=== PATIENT | male | born 1955 | race Caucasian/White ===

== ENCOUNTER 2017-04-24 05:46 | Day surgery (SDC) | payer OTHER ==
[~2017-04-24] VITALS: Ht 185.4 cm; Wt 97.5 kg
[~2017-04-24 05:46] MED LIST: ATENOLOL25 MG PO; GABAPENTIN100 MG PO; GABAPENTIN300 MG PO; GLIPIZIDE10 MG PO; GLIPIZIDE5 MG PO; IMIPRAM HCL50 MG PO; ISOSORB MONO30 MG PO; LISINOPRIL5 MG PO; METFORMIN850 MG PO; PERCOCET 10/31 COMBO PO; PRAVASTATIN20 MG PO; TOLNAFTATE EX
[2017-04-24] MEDS ORDERED: KETOCONAZOLE2 % EX (06:08)
[2017-04-24] MEDS ORDERED: AMITRIPTYLIN25 MG PO (06:09)
[2017-04-24] MEDS ORDERED: VENTOLIN H108 MCG/AC (06:09)
[2017-04-24] MEDS ORDERED: MELOXICAM15 MG PO (06:09)
[2017-04-24] MEDS ORDERED: IPRATROPIU0.5 MG/3 M IN (06:10)
[2017-04-24] MEDS ORDERED: PROVENTIL0.083 % IN (06:10)
[2017-04-24 06:33] LABS: HEMATOCRIT 40.1 % (39.0-50.0); HEMOGLOBIN 14.3 g/dl (14.0-18.0); IMMATURE GRANULOCYTES 0.1 % (0.0-1.0); MEAN CELL VOLUME 93.9 fL CALC (80.0-100.0); MEAN CORPUSCULAR HGB 33.5 pG CALC (26.0-32.0); MEAN CORPUSCULAR HGB CONC 35.7 g/L CALC (32.0-36.0); NEUT# 4.08 thou/uL (1.82-7.42); RED BLOOD COUNT 4.27 mill/uL (4.70-6.10)
[2017-04-24 06:52] LABS: ACT PARTIAL THROMBO TIME 32.6 SECONDS (20.0-32.5); ALBUMIN 4.1 g/dL (3.2-5.0); ALKALINE PHOSPHATASE 98 u/l (38-126); ANION GAP 16 (6-22 (CALC)); BILIRUBIN, TOTAL 0.7 mg/dL (0.0-1.4); BUN 12 mg/dL (8-23); BUN/CREATININE RATIO 21 (12-20 (CALC)); CARBON DIOXIDE 25 mmol/l (22-30); CHLORIDE 105 mmol/l (95-108); CREATININE 0.6 mg/dL (0.7-1.3); GFR > 60 ML/MIN (>=60 (CALC)); GFR FOR AFR.AMER. > 60 ML/MIN (>=60 (CALC)); POTASSIUM 3.7 mmol/l (3.5-5.1); PROTHROMBIN TIME 11.1 SECONDS (9.0-12.5); SGOT/AST 28 u/l (19-48); SGPT/ALT 32 u/l (11-66); SODIUM 143 mmol/l (137-146); TOTAL PROTEIN 6.8 g/dL (6.3-8.2)
[2017-04-24 10:51] VITALS: BP 103/58
[2017-04-24] MEDS ORDERED: PERCOCET1 TA4 PO (10:51)
== END 2017-04-24 11:15 | disposition home or self-care (01) | DRG 502 ==
LOC: ORM 05:46
PROVIDERS: ATTEND Orthopaedic Surgery
PROC: 0LQ24ZZ Repair Left Shoulder Tendon, Percutaneous Endoscopic Approach (ICD-10-PCS; principal; 2017-04-24)
PROC: 0LS44ZZ Reposition Left Upper Arm Tendon, Percutaneous Endoscopic Approach (ICD-10-PCS; 2017-04-24)
PROC: 0RNK4ZZ Release Left Shoulder Joint, Percutaneous Endoscopic Approach (ICD-10-PCS; 2017-04-24)
DX: M75.112 Incomplete rotator cuff tear or rupture of left shoulder, not specified as traumatic (principal); M25.812 Other specified joint disorders, left shoulder; M75.52 Bursitis of left shoulder; S43.432A Superior glenoid labrum lesion of left shoulder, initial encounter; X58.XXXA Exposure to other specified factors, initial encounter
CPT/HCPCS: J1100

== ENCOUNTER 2018-06-07 08:45 | Day surgery (SDC) | payer OTHER ==
[~2018-06-07 08:45] MED LIST changes: +AMITRIPTYLIN25 MG PO; +IPRATROPIU0.5 MG/3 M IN; +KETOCONAZOLE2 % EX; +MELOXICAM15 MG PO; +PERCOCET1 TA4 PO; +PROVENTIL0.083 % IN; +VENTOLIN H108 MCG/AC
[2018-06-07 09:41] VITALS: BP 172/94
== END 2018-06-07 10:10 | disposition designated cancer center or children's hospital (05) | DRG 558 ==
LOC: ORM 08:45 → MS2 08:45 → ORM 10:10 → EDSTATUS 11:45
PROVIDERS: ATTEND Orthopaedic Surgery
DX: M75.122 Complete rotator cuff tear or rupture of left shoulder, not specified as traumatic (principal); Z53.09 Procedure and treatment not carried out because of other contraindication; Z91.19 Patient's noncompliance with other medical treatment and regimen